=== PATIENT | female | born 1955 | race Two or more races ===

== ENCOUNTER → 2017-01-14 | Outpatient (CLI) | payer MEDICAID, OTHER ==
--- NOTE | 2017-01-14 13:34 | RADRPT ---
PROCEDURE: XR right knee. CLINICAL INDICATION: Knee pain TECHNIQUE: AP weightbearing, PA weightbearing, lateral weightbearing and sunrise views are availab le for review. COMPARISON: None available FINDINGS: There is mild osteoarthrosis involving the medial tibial femoral compartment. This is associated wit h joint space narrowing, subchondral sclerosis and osteophytosis. There is otherwise normal mineralization, architecture and alignment. No fractures are identified. No osseous lesions are identified. The soft tissues are unremarkable. IMPRESSION: Mild osteoarthrosis involving the medial tibial femoral compartment. RPTAT: [facility] .Fred Mayo MD, Date Time Electronically viewed and signed by .Fred Mayo MD, on 01/14/2017 13:34 .B/
== END | disposition home or self-care (01) ==
LOC: HKI 10:05
PROVIDERS: ATTEND Orthopaedic Surgery
DX: S83.231A Complex tear of medial meniscus, current injury, right knee, initial encounter (principal); X58.XXXA Exposure to other specified factors, initial encounter
CPT/HCPCS: G0463